=== PATIENT | female | born 2000 | race African-American/Black ===

== ENCOUNTER 2021-12-19 08:43 | Emergency (ER) | payer OTHER ==
[~2021-12-19] VITALS: Ht 165.1 cm; Wt 95.0 kg
[2021-12-19] MEDS ORDERED: birth control (09:04)
[2021-12-19] MEDS ORDERED: PERMETHRIN60 GM TOP (09:47)
[2021-12-19] MEDS ORDERED: IVERMECTIN3 MG PO (09:51)
[2021-12-19] MEDS ORDERED: HYDROXYZINE HCL25 MG PO (09:54)
== END 2021-12-19 10:05 | disposition home or self-care (01) ==
LOC: FSED 09:07
DX: L29.9 Pruritus, unspecified (principal); B86 Scabies
CPT/HCPCS: 81025; 99283

== ENCOUNTER 2022-05-21 08:50 | Emergency (ER) | payer MEDICAID, OTHER ==
[~2022-05-21] VITALS: Ht 162.6 cm; Wt 106.7 kg
[~2022-05-21 08:50] MED LIST: HYDROXYZINE HCL25 MG PO; IVERMECTIN3 MG PO; PERMETHRIN60 GM TOP; birth control
[2022-05-21] MEDS ORDERED: IBUPROFEN600 MG PO (09:34)
[2022-05-21] MEDS ORDERED: DEXAMETHASONE PHOS 4MG/ML 5ML MULTIDOSE VIAL IV ONE (09:45)
[2022-05-21] MEDS ORDERED: DEXAMETHASONE SOD PHOS INJ 4 MG/ML SDV ONE (09:48)
== END 2022-05-21 09:41 | disposition home or self-care (01) ==
LOC: FSED 09:13
DX: J10.1 Influenza due to other identified influenza virus with other respiratory manifestations (principal)
CPT/HCPCS: 83518; 87400; 99283; J1100

== ENCOUNTER 2024-01-02 08:42 | Emergency (ER) | payer OTHER ==
[~2024-01-02] VITALS: Ht 165.1 cm; Wt 95.3 kg
[~2024-01-02 08:42] MED LIST changes: +IBUPROFEN600 MG PO
[2024-01-02 08:49] VITALS: PULSE 89; RESP 18; TEMP 97.4; O2SAT 99
[2024-01-02] MEDS ORDERED: CLINDAMYCIN HC150 MG PO (08:55)
== END 2024-01-02 09:00 | disposition home or self-care (01) ==
LOC: FSED 08:47
DX: L03.116 Cellulitis of left lower limb (principal)
CPT/HCPCS: 99282